=== PATIENT | male | born 1950 | race Caucasian/White ===

== ENCOUNTER 2020-02-18 10:12 | Outpatient (REF) | payer MEDICARE, SELFPAY ==
[2020-02-18 11:24] LABS: Estimated Average Glucose 151 mg/dL; Hemoglobin A1c % 6.9 %
[2020-02-18 11:59] LABS: Anion Gap 15 (12-20); Blood Urea Nitrogen 9 mg/dL (9-16); Calcium 8.8 mg/dL (8.4-10.2); Carbon Dioxide 24 mmol/L (22-29); Chloride 102 mmol/L (96-108); Cholesterol 139 mg/dL; Estimated Glomerular Filt Rate > 60; Glucose Fasting 112 mg/dL (60-99); HDL Cholesterol 38 mg/dL; LDL Cholesterol Calculated 67 mg/dl; Potassium 4.8 mmol/l (3.3-5.1); Sodium 136 mmol/L (135-145); Triglycerides 170 mg/dL
[2020-02-18 12:00] LABS: Prostate Specific Antigen Scr 2.52 ng/mL (<0.05-4.0)
[2020-02-18 12:14] LABS: Microalbum/Creatinine Ratio Ur 11.7 ug/mg cr
== END 2020-02-18 10:13 | disposition home or self-care (01) ==
LOC: HO.HMGCLDS 10:12
PROVIDERS: PCP Nurse Practitioner Family; Visit Provider Nurse Practitioner Gerontology
DX: E11.65 Type 2 diabetes mellitus with hyperglycemia (principal); Z12.5 Encounter for screening for malignant neoplasm of prostate
CPT/HCPCS: 80048; 80061; 82043; 83036; 84153

== ENCOUNTER → 2020-02-29 08:16 | Outpatient (BNVA) | payer MEDICARE, SELFPAY | PROVIDERS: PCP Nurse Practitioner Family; Visit Provider Nurse Practitioner Family | DX: G47.33 Obstructive sleep apnea (adult) (pediatric) (principal) | CPT/HCPCS: Q3014 ==

== ENCOUNTER → 2020-08-10 09:27 | Outpatient (BNVA) | payer MEDICARE, SELFPAY | PROVIDERS: PCP Nurse Practitioner Family; Visit Provider Nurse Practitioner Gerontology | DX: E11.9 Type 2 diabetes mellitus without complications (principal); I10 Essential (primary) hypertension; E78.5 Hyperlipidemia, unspecified; E78.1 Pure hyperglyceridemia; E66.09 Other obesity due to excess calories; Z79.4 Long term (current) use of insulin; Z68.34 Body mass index [BMI] 34.0-34.9, adult | CPT/HCPCS: 82947; 99212 ==

== ENCOUNTER 2021-01-20 07:47 | Outpatient (REF) | payer MEDICARE, SELFPAY ==
[2021-01-20 11:46] LABS: Estimated Average Glucose 123 mg/dL; Hemoglobin A1c % 5.9 %
[2021-01-20 11:54] LABS: Alanine Aminotransferase 19 U/L (0-40); Albumin Level 4.3 g/dL (3.5-5.0); Alkaline Phosphatase 105 U/L (39-117); Anion Gap 16 (12-20); Aspartate Amino Transferase 17 U/L (5-37); Bilirubin Total 0.6 mg/dL (0.0-1.0); Blood Urea Nitrogen 10 mg/dL (9-16); Calcium 9.8 mg/dL (8.4-10.2); Carbon Dioxide 23 mmol/L (22-29); Chloride 106 mmol/L (96-108); Cholesterol 171 mg/dL; Estimated Glomerular Filt Rate > 60; Glucose Fasting 141 mg/dL (60-99); HDL Cholesterol 42 mg/dL; LDL Cholesterol Calculated 87 mg/dl; Potassium 5.1 mmol/L (3.3-5.1); Sodium 140 mmol/L (135-145); Total Protein 7.4 g/dL (6.5-8.0); Triglycerides 212 mg/dL
[2021-01-20 12:08] LABS: Microalbum/Creatinine Ratio Ur 6.8 ug/mg cr
== END 2021-01-20 07:48 | disposition home or self-care (01) ==
LOC: HO.HMGCLDS 07:47
PROVIDERS: PCP Nurse Practitioner Family; Visit Provider Nurse Practitioner Gerontology
DX: E11.9 Type 2 diabetes mellitus without complications (principal); Z79.4 Long term (current) use of insulin
CPT/HCPCS: 36415; 80053; 80061; 82043; 83036

== ENCOUNTER → 2021-02-08 09:06 | Outpatient (BNVA) | payer MEDICARE, SELFPAY | PROVIDERS: PCP Nurse Practitioner Family; Visit Provider Nurse Practitioner Gerontology | DX: E11.9 Type 2 diabetes mellitus without complications (principal); E78.5 Hyperlipidemia, unspecified; E78.1 Pure hyperglyceridemia; E66.09 Other obesity due to excess calories; I10 Essential (primary) hypertension; Z79.4 Long term (current) use of insulin; Z68.32 Body mass index [BMI] 32.0-32.9, adult | CPT/HCPCS: 82947; 99212 ==

== ENCOUNTER 2022-09-11 10:33 | Emergency (ER) | payer MEDICARE, OTHER, SELFPAY ==
[2022-09-11 10:50] VITALS: BP 154/76; PULSE 76; RESP 20; TEMP 36.6; O2SAT 98; BMI 30.9
--- NOTE | 2022-09-11 11:42 | ED.LOWEXIN ---
HPI - Extremity Injury (Lower) General Chief Complaint: Extremity Injury, Lower Stated Complaint: ? Fx L Ankle S/P Fall Time Seen by Provider: 09/11/22 11:21 Source: patient Mode of arrival: ambulatory Limitations: no limitations History of Present Illness HPI Narrative: Patient is a 71 year old male with a past medical history of diabetes, hypertension, hyperlipidemia, and obesity presents with left ankle pain and swelling X2 days. Patient reports he was outside going down the stairs when he twisted his ankle. Patient was able to catch himself and did not fall to the ground and denies any head injury/loss of consciousness. Patient reports history of a sprained ankle on this same side years ago but came in because he is worried about a fracture as there is more swelling. Patient denies fever, chills, nausea, vomiting, numbness, tingling, chest pain, shortness of breath, numbness, or tingling. Related Data Home Medications Medication Instructions Recorded Confirmed amlodipine 5 mg tablet 5 mg PO DAILY 01/06/20 02/08/21 cholecalciferol (vitamin D3) 50 50 mcg PO DAILY 01/06/20 02/08/21 mcg (2,000 unit) capsule pravastatin 80 mg tablet 80 mg PO DAILY 01/06/20 02/08/21 [facility] 02/08/21 02/08/21 Ultra2 Meter) Previous Rx's Medication Instructions Recorded omega-3 fatty acids-fish oil 340 1 cap PO BID #60 caps 07/23/20 mg-1,000 mg capsule (Fish Oil) pen needle, diabetic 32 gauge x #100 ea 01/05/21 aspirin 81 mg tablet,delayed 81 mg PO DAILY #30 tabs 02/08/21 release lancets 33 gauge ([facility] Delica #100 ea 02/08/21 Plus Lancet) metformin 1,000 mg tablet 1,000 mg PO BID #180 tabs 04/17/21 losartan 25 mg tablet 25 mg PO DAILY 90 days #90 tabs 05/12/21 dapagliflozin propanediol 5 mg 5 mg PO DAILY 30 days #30 tabs 05/14/21 tablet (Farxiga) blood sugar diagnostic ([facility] #100 ea 08/10/21 Ultra Test strips) empagliflozin 10 mg tablet 10 mg PO DAILY #30 tabs 09/11/21 (Jardiance) dulaglutide 1.5 mg/0.5 mL 1.5 mg (0.5 mL) subcut QWEEK 28 10/04/21 subcutaneous pen injector days #2 mL (Trulicity) insulin glargine U-300 conc 300 20 unit (0.0667 mL) subcut BEDTIME 12/27/21 unit/mL (3 mL) subcutaneous pen 70 days #6 mL (Toujeo Max U-300 SoloStar) doxycycline hyclate 100 mg capsule 100 mg PO BID 5 days #10 caps 03/06/22 Allergies Allergy/AdvReac Type Severity Reaction Status Date / Time lisinopril Allergy Unknown cough Verified 09/11/22 10:53 Review of Systems Review of Systems: Constitutional : No Weight loss, No Fever, No Chills, No Fatigue, No Malaise ENT/Mouth : No sore throat, No Rhinorrhea Eyes: No Eye Pain, No Swelling, No Redness Cardiovascular : No Chest Pain, No SOB, No Dyspnea on Exertion, No Orthopnea, No Edema, No Palpitations Respiratory : No Cough, No Sputum, No Wheezing Gastrointestinal : No Nausea, No Vomiting, No Diarrhea, No Constipation, No abdominal Pain, No Hematochezia, No Melena Genitourinary : No Dysuria, No Urinary Frequency, No Hematuria, Musculoskeletal : + joint pain, No Myalgias, + Joint Swelling Skin : No Skin Lesions, No rash Neuro : No Weakness, No Numbness, No Dizziness, No Headache Psych : No Anxiety/Panic, No Depression All other systems reviewed and are negative Yes all other systems are reviewed and are negative [facility] Past Medical History Attestation statement: The following information was validated with the patient. Source: old records reviewed and nursing notes reviewed Medical History BMI 38.0-38.9,adult Controlled diabetes mellitus without complication, with long-term current use of insulin Diabetes mellitus type 2, controlled, without complications Dyslipidemia Erectile dysfunction Essential hypertension Fatty liver Hyperlipidemia LDL goal <100 Hypertriglyceridemia Insomnia penitentiary current use of insulin Microalbuminuria Obesity due to excess calories JACQUELYN (obstructive sleep apnea) Splenomegaly Vitamin D deficiency Surgical History History of tonsillectomy Family History Family History Father Stroke Rupture of blood vessel Diabetes Mother Breast cancer Maternal Grandmother Breast cancer Paternal Grandfather Bone cancer Maternal Aunt Breast cancer Maternal Uncle Bone cancer Paternal Aunt Breast cancer Brother Diabetes Brother Diabetes Brother No problems noted. Son No problems noted. Daughter No problems noted. Sister No problems noted. Sister No problems noted. Sister No problems noted. Sister No problems noted. Social History Social History Household Members: Other Household Members Other:: roomate Patient Tobacco Use Status: Former Tobacco user Tobacco use type: Cigarette Advance Directives: No Advance Directives Information Provided: Yes Physical Exam Vital Signs: Vital Signs: Last Vital Signs Temp 97.8 F 09/11/22 10:50 Pulse 76 09/11/22 10:50 Resp 20 09/11/22 10:50 BP 154/76 H 09/11/22 10:50 Pulse Ox 98 09/11/22 10:50 O2 Del Method Room Air 09/11/22 10:50 BMI result Body Mass Index 30.9 vss Appearance: Alert.? Oriented X3.? No acute distress.? Head: Normocephalic, atraumatic, no step-offs or deformities Eyes: Pupils equal, round and reactive to light CVS: Normal heart rate and rhythm.? Pulses normal.? Respiratory: No respiratory distress.? Breath sounds normal.? Abdomen: Soft and nontender.? Skin: Skin warm and dry.? Normal skin color.? Normal skin turgor.? Extremities:? No calf ttp. 5/5 strength to bilateral upper and lower extremities no footdrop. 2+ dorsalis pedis, anterior tibialis and posterior tibialis pulses equal bilateral. Full range of motion to bilateral ankles and toes, slight discomfort with range of motion of left ankle/foot. No overlying skin changes. Normal capillary refill less than 2 seconds. There is swelling noted to the lateral aspect of left ankle. Back: No midline tenderness, no C-spine tenderness, full range of motion, no CVA tenderness bilaterally Neuro: Oriented X 3.? No motor deficit.? No sensory deficit. CN 2-12 intact Course Reevaluation(s) Reevaluation #1: Patient's left foot and ankle x-ray with no evidence of acute osseous injury. Marked soft tissue swelling laterally and possible small ankle joint effusion. Offered patient pain meds, he states he is okay for now and does not need anything for pain. Will place a Mookie wrap on affected ankle. Will give him orthopedic follow-up. Educated patient on diagnosis and treatment plan, answered all question, patient verbalizes understanding. At this time patient will be discharged home, advised to return with new or worsening symptoms. Educated on worrisome signs and symptoms and when to return. At this time I feel comfortable discharge home. Time: 12:40 Medical Decision Making Medical Decision Making [facility] Narrative: 1143 71-year-old male presents with left ankle/foot pain status post rolling his ankle while walking down the stairs, no fall, head strike or other injuries. Physical exam significant for ? No calf ttp. 5/5 strength to bilateral upper and lower extremities no footdrop. 2+ dorsalis pedis, anterior tibialis and posterior tibialis pulses equal bilateral. Full range of motion to bilateral ankles and toes, slight discomfort with range of motion of left ankle/foot. No overlying skin changes. Normal capillary refill less than 2 seconds. There is swelling noted to the lateral aspect of left ankle. Likely sprain or strain with overlying effusion, unlikely fracture, dislocation, no signs of threatened limb neurovascular compromise. Plan imaging. Differential Diagnosis Differential Diagnoses: The differential diagnosis associated with the presentation includes Likely sprain or strain with overlying effusion, unlikely fracture, dislocation, no signs of threatened limb neurovascular compromise. Admission/Observation Consideration of admission/observation: Escalation of care including admission/observation considered Unlikely Independent Interpretation I performed an independent interpretation of an: Plain X-Ray Radiology Impression Discussion of test interpretation with radiology: I have reviewed the radiologist's reading. Core Measures AMI core measures followed: Yes Measure exclusions: not indicated Critical Care Time Critical Care Time Critical Care Time: No Discharge Plan Discharge Clinical Impression: Ankle sprain and strain Patient Disposition: Home, Self-Care Instructions: Ankle Sprain (ED), How to Use an Elastic Bandage (ED), R.I.C.E. Treatment (ED), Ice Pack Application (ED) Additional Instructions: Take your medications as prescribed. If you were prescribed antibiotics today, it is important that you take your medication to their entirety, do not skip any doses, do not finish them early. Follow-up with your primary care provider this week. Follow-up with the orthopedic team if needed Return to the emergency department with new or worsening symptoms. Such as fevers, chills, chest pain, shortness of breath, nausea, vomiting, dizziness, headache, vision changes, lethargy In case of emergency call 911 XR/XR ankle LT min 3V IMPRESSION: No evidence of an acute osseous injury. Marked soft tissue tissue swelling laterally and possible small ankle joint effusion. ? Prescriptions: No Action omega-3 fatty acids-fish oil [Fish Oil] 340-1,000 mg capsule 1 cap PO BID Qty: 60 6RF (DME) pen needle, diabetic 32 gauge x 5/32 needle See Rx Instructions .ROUTE .MEDSUPPLY Qty: 100 11RF Rx Instructions: As directed once daily. metformin 1,000 mg tablet 1,000 mg PO BID Qty: 180 0RF losartan 25 mg tablet 25 mg PO DAILY 90 Days Qty: 90 0RF Farxiga 5 mg tablet 5 mg PO DAILY 30 Days Qty: 30 0RF (DME) OneTouch Ultra Test Strip See Rx Instructions .Route Qty: 100 11RF Rx Instructions: As directed testing 2x daily. Jardiance 10 mg tablet 10 mg PO DAILY Qty: 30 2RF Trulicity 1.5 mg/0.5 mL pen injector 1.5 mg subcut QWEEK 28 Days Qty: 2 6RF Toujeo Max U-300 SoloStar 300 unit/mL (3 mL) insulin pen 20 unit subcut BEDTIME 70 Days Qty: 6 0RF amlodipine 5 mg tablet 5 mg PO DAILY pravastatin 80 mg tablet 80 mg PO DAILY cholecalciferol (vitamin D3) 50 mcg (2,000 unit) capsule 50 mcg PO DAILY doxycycline hyclate 100 mg capsule 100 mg PO BID 5 Days Qty: 10 0RF (DME) blood-glucose meter [OneTouch Ultra2 Meter] Misc See Rx Instructions .Route Rx Instructions: As directed (DME) lancets [OneTouch Delica Plus Lancet] 33 gauge [facility] peninsulac See Rx Instructions .Route Qty: 100 11RF Rx Instructions: As directed twice a day aspirin 81 mg tablet,delayed release (DR/EC) 81 mg PO DAILY Qty: 30 11RF Referrals: [facility] [place] [facility] [Provider Group] - 2 days Juan Cervantes, TELEVISION PRESENTER-BC [Primary Care Provider] - 2 days Stand Alone Forms: Work/School Release Interventions: ED Discharge Assessment Last Done: 09/11/22 12:40
== END 2022-09-11 12:41 | disposition home or self-care (01) ==
PROVIDERS: Emergency Provider Emergency Medicine; PCP Nurse Practitioner Family
DX: S93.402A Sprain of unspecified ligament of left ankle, initial encounter (principal); S96.912A Strain of unspecified muscle and tendon at ankle and foot level, left foot, initial encounter; X50.1XXA Overexertion from prolonged static or awkward postures, initial encounter; Y93.89 Activity, other specified; Y92.009 Unspecified place in unspecified non-institutional (private) residence as the place of occurrence of the external cause; Y99.9 Unspecified external cause status
CPT/HCPCS: 73610; 73630; 99282; 99283

== ENCOUNTER 2023-08-07 11:16 | Outpatient (AMB) | payer MEDICARE, MEDICAID, SELFPAY ==
[2023-08-07 11:23] VITALS: BP 136/78; PULSE 84; O2SAT 96; BMI 31.5
--- NOTE | 2023-08-07 11:23 | A.OFFPC_ITS ---
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 Tobacco use date assessed: 08/07/23 Fall risk assessment: No Falls in past year Last assessed Fall Risk: 08/07/23 Dental Screening Dental Screen Date: 08/07/23 Did you have a dental visit in the last 12 months?: Yes Did you have a dental problem in the last 6 months where you did not have access to dental care?: No Was dental information given to patient?: Patient has dentist HPI HPI Comments History of Present Illness Details Patient is a 72-year-old male in for preoperative clearance for bilateral cataract surgery. Patient has a past medical history significant for diabetes type 2, hypertension, hyperlipidemia, and obstructive sleep apnea. Patient reports that he has not been able to take his medications for the past 6 months due to insurance issues. Denies symptoms of polyuria polydipsia. Will restart patient on medications today. Will prescribe new glucose monitor. Will draw full panel fasting labs. [facility] Medical History Microalbuminuria Splenomegaly Controlled diabetes mellitus without complication, with long-term current use of insulin retirement current use of insulin Essential hypertension Hyperlipidemia LDL goal <100 Hypertriglyceridemia Obesity due to excess calories BMI 38.0-38.9,adult Dyslipidemia Vitamin D deficiency Insomnia Erectile dysfunction JACQUELYN (obstructive sleep apnea) Fatty liver Diabetes mellitus type 2, controlled, without complications Surgical History History of tonsillectomy Family History Father Stroke Rupture of blood vessel Diabetes Mother Breast cancer Maternal Grandmother Breast cancer Paternal Grandfather Bone cancer Maternal Aunt Breast cancer Maternal Uncle Bone cancer Paternal Aunt Breast cancer Brother Diabetes Brother Diabetes Brother No problems noted. Son No problems noted. Daughter No problems noted. Sister No problems noted. Sister No problems noted. Sister No problems noted. Sister No problems noted. Social History Household Members: Other Household Members Other:: roomate Housing: House Patient Tobacco Use Status: Former Tobacco user Tobacco use type: Cigarette Cognitive needs: No Hearing needs: No Review of Systems Const All systems reviewed & are unremarkable except as noted in HPI and below Physical exam (Primary Care) Vital Signs: Last Vital Signs Pulse 84 08/07/23 11:23 BP 136/78 08/07/23 11:23 Pulse Ox 96 08/07/23 11:23 Care Plan Goal for BP management: Patient started on losartan 25 mg for kidney protection Next steps: Take blood pressure at least once per day record and bring to appointment in 1 month BMI result Body Mass Index 31.5 Tobacco/Smoking Status: Tobacco use Status Tobacco use date assessed 08/07/23 08/07/23 11:27 Patient Tobacco Use Status Former Tobacco user 08/07/23 11:27 Tobacco use type Cigarette 08/07/23 11:27 Const Other: Appearance: Alert.? Oriented X3.? No acute distress.? Head: Normocephalic, Eyes: Pupils equal, round and reactive to light.? Neck: Normal inspection.? Neck supple.? CVS: Normal heart rate and rhythm.? Pulses normal.? Respiratory: No respiratory distress.? Breath sounds normal.? Neuro: Oriented X 3.? No motor deficit.? No sensory deficit. CN 2-12 intact Assessment and Plan Assessment & Plan (1) Pre-op exam: Comment: Will draw full panel fasting labs. In office A1c 10.6. Patient restarted on diabetic medications. Patient is at high risk for procedure. Code(s): Z01.818 - Encounter for other preprocedural examination (2) Essential hypertension: Comment: We started losartan 25 mg p.o. daily. Patient will record blood pressure measurements at least once per day. Code(s): I10 - Essential (primary) hypertension (3) Hypertriglyceridemia: Comment: Patient restarted on atorvastatin 20 mg p.o. daily. Code(s): E78.1 - Pure hyperglyceridemia (4) Uncontrolled type 2 diabetes mellitus with hyperglycemia: Comment: A1c in office 10.6 patient restarted on metformin and Jardiance. Will likely need to restart on Trulicity as well. Patient has follow-up appointment in 1 month. Patient has been instructed to take blood sugar measurements at least once per day and record them in a log. Code(s): E11.65 - Type 2 diabetes mellitus with hyperglycemia Plan: Draw labs Plan Patient has follow-up physical exam 1 month. Orders: Orders Lipid Panel Today Z13.220 - Encounter for screening for lipoid disorders Vitamin B6 Today Z13.21 - Encounter for screening for nutritional disorder TSH reflex Free T4 Today Z13.29 - Encounter for screening for other suspected endocrine disorder PSA,Total (Free>4and<10) Today Z13.89 - Encounter for screening for other disorder AMB Hemoglobin A1c Today Z13.9 - Encounter for screening, unspecified Comprehensive Met. Panel Today Z91.89 - Other specified personal risk factors, not elsewhere classified Complete Blood Count Auto Diff Today Z13.0 - Encounter for screening for diseases of the blood and blood-forming organs and certain disorders involving the immune mechanism Vitamin D 25-OH (D2 and D3) Today Z13.21 - Encounter for screening for nutritional disorder Vitamin B12 Today Z13.21 - Encounter for screening for nutritional disorder UA CC w/rflx Micro + Cult Today Z13.89 - Encounter for screening for other disorder Medications: New metformin 1,000 mg PO BIDWMEAL 60 tabs 0RF empagliflozin (Jardiance) 10 mg PO DAILY 30 tabs 0RF losartan 25 mg PO DAILY 30 tabs 0RF atorvastatin 20 mg PO DAILY 30 tabs 0RF lancets (FreeStyle Lancets) As directed 100 ea 0RF blood-glucose meter (FreeStyle Lite Meter kit) Take blood sugar measurements x1 per day. 1 ea 0RF blood sugar diagnostic (FreeStyle Lite Strips) Take blood sugar x1 per day. 100 ea 0RF Coding Level of Care Code Est Pt Level 3 (61933) Diagnoses Pre-op exam Z01.818 Essential hypertension I10 Hypertriglyceridemia E78.1 Uncontrolled type 2 diabetes mellitus with hyperglycemia E11.65 Time Spent (min) 27
== END 2023-08-07 14:55 | disposition home or self-care (01) ==
PROVIDERS: PCP Nurse Practitioner Family; Visit Provider Nurse Practitioner Primary Care
DX: E11.65 Type 2 diabetes mellitus with hyperglycemia (principal)
CPT/HCPCS: 83036; 99213

== ENCOUNTER 2023-08-19 08:39 | Outpatient (REF) | payer OTHER, SELFPAY ==
[2023-08-19 10:29] LABS: Appearance Urine Clear; Color Urine Yellow; Glucose Urine UA >=1000 mg/dL (Negative); Leukocyte Esterase Urine Negative (Negative); Nitrite Urine Negative (Negative); Specific Gravity - Urine >= 1.030 (1.005-1.025); UMIC TRIGGER UACC YES; Urine Blood Negative (Negative); Urine Ketones Trace mg/dL (Negative); Urine Protein Negative (Neg-Trace)
[2023-08-19 10:31] LABS: MANUAL DIFF FLAG NO
[2023-08-19 10:42] LABS: Bacteria Urine None Seen (None Seen); Hyaline Casts Urine 0-2 /LPF (0-2); RBC Urine 0-2 /HPF (0-2); Squamous Epithelial Cell Urine 0-2 /HPF (0-2); WBC Urine 0-5 /HPF (0-5)
[2023-08-19 10:47] LABS: Basophils Absolute Auto 0.1 X10*3/uL (0.0-0.2); Basophils Percent Auto 0.8 % (0-2); Eosinophils Absolute Auto 0.1 X10*3/uL (0.0-0.4); Eosinophils Percent Auto 1.2 % (0-4); Hematocrit 46.7 % (42.0-52.0); Hemoglobin 16.6 g/dl (14.0-18.0); Imm Gran Abs Auto 0.02 X10*3/uL (0.00-0.03); Imm Gran Pct Auto 0.2 % (0.0-0.4); Lymphocytes Absolute Auto 3.1 X10*3/uL (1.2-4.9); Lymphocytes Percent Auto 38.1 % (20-40); Mean Corpuscular HGB Conc 35.5 g/dl (31.0-36.0); Mean Corpuscular Hemoglobin 30.3 pg (27.0-33.0); Mean Corpuscular Volume 85.4 fL (80.0-98.0); Mean Platelet Volume 9.9 fL (9.4-12.4); Monocytes Absolute Auto 0.5 X10*3/uL (0.1-1.2); Monocytes Percent Auto 5.6 % (2-11); Neutrophils Absolute Auto 4.5 x10*3/uL (2.0-8.3); Neutrophils Percent Auto 54.1 % (45-73); Platelet Count 293 X10*3/uL (160-400); Red Blood Count 5.47 X10*6/uL (4.60-5.80); Red Cell Distribution Width 13.5 % (11.0-16.0); White Blood Count 8.3 X10*3/uL (4.8-10.8)
[2023-08-19 11:17] LABS: Alanine Aminotransferase 23 U/L (0-40); Alkaline Phosphatase 105 U/L (39-117); Anion Gap 12 (12-20); Aspartate Amino Transferase 24 U/L (5-37); Bilirubin Total 0.5 mg/dL (0.0-1.0); Calcium 9.3 mg/dL (8.4-10.2); Carbon Dioxide 25 mmol/L (22-29); Chloride 107 mmol/L (96-108); Cholesterol 107 mg/dL (<200); Estimated Glomerular Filt Rate > 60; Glucose Random 180 mg/dL (60-115); HDL Cholesterol 38 mg/dL (>40); LDL Cholesterol Calculated 34 mg/dL (<100); Sodium 139 mmol/L (135-145); Total Protein 7.1 g/dL (6.5-8.0); Triglycerides 177 mg/dL (<150)
[2023-08-19 11:20] LABS: PSA,Total (Free>4and<10) 2.93 ng/mL (0.00-4.00)
[2023-08-19 11:25] LABS: Vitamin B12 285 pg/mL (200-900)
[2023-08-19 11:50] LABS: Blood Urea Nitrogen 11 mg/dL (9-16)
[2023-08-19 12:21] LABS: TSH reflex Free T4 1.87 uIU/mL (0.32-4.0)
[2023-08-23 15:08] LABS: Vitamin D 25-OH, D2 <4 ng/mL; Vitamin D 25-OH, D3 19 ng/mL; Vitamin D 25-OH, Total 19 ng/mL (30-100)
[2023-08-29 11:54] LABS: Vitamin B6 4.8 ng/mL (2.1-21.7)
== END 2023-08-19 08:40 | disposition home or self-care (01) ==
LOC: HO.HMGCLDS 08:39
PROVIDERS: PCP Nurse Practitioner Family; Visit Provider Nurse Practitioner Primary Care
DX: Z13.220 Encounter for screening for lipoid disorders (principal); Z13.89 Encounter for screening for other disorder; Z13.0 Encounter for screening for diseases of the blood and blood-forming organs and certain disorders involving the immune mechanism; Z13.21 Encounter for screening for nutritional disorder; Z13.29 Encounter for screening for other suspected endocrine disorder; Z91.89 Other specified personal risk factors, not elsewhere classified; Z12.5 Encounter for screening for malignant neoplasm of prostate
CPT/HCPCS: 36415; 80053; 80061; 81001; 82306; 82607; 84153; 84207; 84443; 85025

== ENCOUNTER 2023-09-19 15:24 | Outpatient (AMB) | payer OTHER, MEDICAID, SELFPAY ==
--- NOTE | 2023-09-19 15:25 | MHC.PC.OV ---
Vital Signs 09/19/23 15:31 Height 5 ft 4 in Weight 183 lb BMI 31.4 BP 124/66 Blood Pressure Location Lt brachial Position Sitting Pulse 67 Pulse Source Pulse Oximeter Pulse Oximetry (%) 98 Oxygen Delivery Method Room Air Intake Visit Reasons: Diabetes Intake Note: Pt is here for diabetes followup. A1c 10.6% 08/07/23 Allergies lisinopril Allergy (Unknown, Verified 09/19/23 15:38) cough Medication List - Last Reconciled 09/19/23 by RC Jones atorvastatin 20 mg PO DAILY blood sugar diagnostic (Accu-Chek Guide test strips) Test blood sugar once a day blood-glucose meter (Accu-Chek Guide Glucose Meter) As directed cholecalciferol (vitamin D3) 50 mcg PO DAILY empagliflozin (Jardiance) 10 mg PO DAILY lancets (Accu-Chek Softclix Lancets) test blood sugar once a day losartan 25 mg PO DAILY metformin 1,000 mg PO BID pen needle, diabetic As directed once daily. Tobacco use date assessed: 09/19/23 Fall risk assessment: No Falls in past year Dental Screening Dental Screen Date: 08/07/23 Did you have a dental visit in the last 12 months?: No Did you have a dental problem in the last 6 months where you did not have access to dental care?: No Was dental information given to patient?: Patient declined HPI HPI Comments History of Present Illness Details Patient is a 72-year-old male in today to follow-up on labs. Patient had labs drawn which demonstrated low vitamin D3, and hypertriglyceridemia. Patient was also off of his diabetic medications for several months, and was restarted on them at the previous visit. Currently utilizing a 1000 mg metformin, b.i.d., and Jardiance 10 mg p.o. daily. He has been taking his blood sugar measurements at home and states that his highest value at home has been in the 130s, usually blood sugars are in the low 100s. He has also started exercising and improving his diet. Will redraw labs in 1 month. Will also draw microalbumin. [facility] Medical History (Updated 09/19/23 @ 15:47 by RC Jones) Microalbuminuria Splenomegaly Controlled diabetes mellitus without complication, with long-term current use of insulin nursing home current use of insulin Essential hypertension Hyperlipidemia LDL goal <100 Hypertriglyceridemia Obesity due to excess calories BMI 38.0-38.9,adult Dyslipidemia Vitamin D deficiency Insomnia Erectile dysfunction JACQUELYN (obstructive sleep apnea) Fatty liver Diabetes mellitus type 2, controlled, without complications Surgical History History of tonsillectomy Family History Father Stroke Rupture of blood vessel Diabetes Mother Breast cancer Maternal Grandmother Breast cancer Paternal Grandfather Bone cancer Maternal Aunt Breast cancer Maternal Uncle Bone cancer Paternal Aunt Breast cancer Brother Diabetes Brother Diabetes Brother No problems noted. Son No problems noted. Daughter No problems noted. Sister No problems noted. Sister No problems noted. Sister No problems noted. Sister No problems noted. Social History Household Members: Other Household Members Other:: roomate Housing: House Patient Tobacco Use Status: Former Tobacco user Tobacco use type: Cigarette e-Cigarette/Vaping Use: Never Used Cognitive needs: No Hearing needs: No Vision needs: No Questionnaire PHQ-9 Over the last 2 weeks, how often have you been bothered by any of the following problems? 1. Little interest or pleasure in doing things: not at all 2. Feeling down, depressed, or hopeless: not at all 3. Trouble falling or staying asleep, or sleeping too much: not at all 4. Feeling tired or having little energy: not at all 5. Poor appetite or overeating: not at all 6. Feeling bad about yourself - or that you are a failure or have let yourself or your family down: not at all 7. Trouble concentrating on things, such as reading the newspaper or watching television: not at all 8. Moving or speaking so slowly that other people could have noticed. Or the opposite - being so fidgety or restless that you have been moving around a lot more than usual: not at all 9. Thoughts that you would be better off or of hurting yourself in some way: not at all Total score: 0 Depression Screening Interpretation: Negative Depression Screening Done: Yes 77039 - PHQ-9 Billing: Yes Source: Developed by Drs. Mehul Mosquera, Jamar Barry and colleagues, with an educational amara from [employer]. Thrive Questionnaire Date Thrive assessed: 09/19/23 I am a: Patient What is your living situation today?: I have a steady place to live Within the past 12 months, did the food you bought not last and you didn't have the money to get more?: Never true Within the past 12 months, did you worry whether your food would run out before you got money to buy more?: Never true Do you have trouble paying for medicines?: No Do you have trouble getting transportation to medical appointments?: No Do you have trouble paying your heating and electricity bill?: No Do you have trouble taking care of your child, family member or friend?: No Do you have trouble with day-to-day activities such as bathing, preparing meals, shopping, managing finances, etc.?: No Are you currently unemployed and looking for a job?: No Are you interested in more education?: No Please select the resources that you would like help with: None Currently or been in a relationship where the following occur: No concerns reported THRIVE Score: 0 AUDIT C Alcohol Use Questionnaire (AUDIT-C) 1. How often do you have a drink containing alcohol?: Never Total Score: 0 MARYCARMEN-7 AMB Questionnaire MARYCARMEN-7 Date MARYCARMEN - 7 assessed: 09/19/23 Feeling nervous, anxious, or on edge: 0 = Not at all Not being able to stop or control worryin = Not at all Worrying too much about different things: 0 = Not at all Trouble relaxin = Not at all Being so restless that it is hard to sit still: 0 = Not at all Becoming easily annoyed or irritable: 0 = Not at all Feeling afraid as if something awful might happen: 0 = Not at all Total MARYCARMEN-7 score (0-4 normal; 5-9 mild; 10-14 moderate; 15-21 severe): 0 Source: Developed by Drs. Mehul Mosquera, Jamar Barry and colleagues, with an educational amara from [employer]. MARYCARMEN-7 Assessment Billing MARYCARMEN-7 Assessment Tool: MARYCARMEN-7 Assessment 76697 Review of Systems Const All systems reviewed & are unremarkable except as noted in HPI and below Physical exam (Primary Care) Vital Signs: Last Vital Signs Pulse 67 09/19/23 15:31 BP 124/66 09/19/23 15:31 Pulse Ox 98 09/19/23 15:31 Oxygen Delivery Method Room Air 09/19/23 15:31 BMI result Body Mass Index 31.4 Tobacco/Smoking Status: Tobacco use Status Tobacco use date assessed 09/19/23 09/19/23 15:27 Patient Tobacco Use Status Former Tobacco user 09/19/23 15:25 Tobacco use type Cigarette 09/19/23 15:25 e-Cigarette/Vaping Use Never Used 09/19/23 15:27 PHQ-9: PHQ-9 Score PHQ-9: Total score 0 09/19/23 15:35 Depression Screening Interpretation: Negative Thrive Assessment: Date of Thrive Assessment Date Thrive assessed 09/19/23 09/19/23 15:35 Currently or been in a relationship where the following occur: No concerns reported Const Other: Appearance: Alert.? Oriented X3.? No acute distress.? Head: Normocephalic, atraumatic, no step-offs or deformities Neck: Normal inspection.? Neck supple.? CVS: Normal heart rate and rhythm.? Pulses normal.? Respiratory: No respiratory distress.? Breath sounds normal.? Neuro: Oriented X 3.? No motor deficit.? No sensory deficit. CN 2-12 intact Assessment and Plan Assessment & Plan (1) Vitamin D deficiency: Comment: Patient will have vitamin-D redrawn in 1 month. Currently utilizing 2000 units vitamin D3 per day. Code(s): E55.9 - Vitamin D deficiency, unspecified (2) Hypertriglyceridemia: Comment: Patient restarted on atorvastatin 20 mg p.o. daily. Will redraw 1 month. Code(s): E78.1 - Pure hyperglyceridemia Plan: draw labs Orders: Orders Microalbumin, Random (w Creat) Today Z13.89 - Encounter for screening for other disorder Vitamin D 25-OH (D2 and D3) Today Z13.21 - Encounter for screening for nutritional disorder Lipid Panel Today Z13.220 - Encounter for screening for lipoid disorders Coding Level of Care Code Est Pt Level 3 (81801) Diagnoses Vitamin D deficiency E55.9 Hypertriglyceridemia E78.1 Additional Codes MARYCARMEN-7 Assessment Billing - MARYCARMEN-7 Assessment Tool: MARYCARMEN-7 Assessment 52516 ([id number]) Time Spent (min) 23
[2023-09-19 15:31] VITALS: BP 124/66; PULSE 67; O2SAT 98; BMI 31.4
== END 2023-09-19 15:45 | disposition home or self-care (01) ==
PROVIDERS: PCP Nurse Practitioner Family; Visit Provider Nurse Practitioner Primary Care
DX: E55.9 Vitamin D deficiency, unspecified (principal); E78.1 Pure hyperglyceridemia
CPT/HCPCS: 99213

== ENCOUNTER 2023-12-25 12:15 | Outpatient (AMB) | payer OTHER, MEDICARE, SELFPAY ==
--- NOTE | 2023-12-25 12:22 | A.OFFPC_ITS ---
Vital Signs 12/25/23 12:23 Height 5 ft 4 in Weight 183 lb BMI 31.4 BP 118/66 Blood Pressure Location Rt brachial Position Sitting Pulse 70 Pulse Source Pulse Oximeter Pulse Oximetry (%) 98 Oxygen Delivery Method Room Air Intake Visit Reasons: Transfer back from [facility]/ Intake Note: pt is [facility] to [facility] care, patient is dm Senior Environmental Technician Required: No Allergies lisinopril Allergy (Unknown, Verified 12/25/23 12:25) cough Medication List - Last Reconciled 12/25/23 by AMY Valentine atorvastatin 20 mg PO DAILY blood sugar diagnostic (Accu-Chek Guide test strips) Test blood sugar once a day blood-glucose meter (Accu-Chek Guide Glucose Meter) As directed cholecalciferol (vitamin D3) 50 mcg PO DAILY empagliflozin (Jardiance) 10 mg PO DAILY lancets (Accu-Chek Softclix Lancets) test blood sugar once a day losartan 25 mg PO DAILY metformin 1,000 mg PO BID pen needle, diabetic As directed once daily. Tobacco use date assessed: 09/19/23 Fall risk assessment: No Falls in past year Last assessed Fall Risk: 12/25/23 Dental Screening Dental Screen Date: 08/07/23 HPI Transfer back from [facility]/ HPI Details Pt is here to transfer care from another provider. Pt is a diabetic, on an ARB and a statin. A1C in office today is 6.7. Due for microalbumin, will order. Denies polyuria, polydipsia, does report intermittent neuropathy. Pt denies any signs and symptoms of hypoglycemia and does know how to correct it. Eye exam is up to date. Pt c/o left leg numbness. He reports that his leg gives out and he feels unsteady. Pt does report lower back pain. Will order XR and EMG/nerve conduction testing. Denies any signs of cauda equina. Pt also reports left hip pain. He reports that standing up after sitting for long periods makes the pain worse. Denies any popping or clicking. Will order XR. Pt reports that his joints hurt worse when it rains. ? arthritis. 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 Essential hypertension Hyperlipidemia LDL goal <100 Hypertriglyceridemia Obesity due to excess calories BMI 38.0-38.9,adult Dyslipidemia Vitamin D deficiency Insomnia Erectile dysfunction JACQUELYN (obstructive sleep apnea) Fatty liver Diabetes mellitus type 2, controlled, without complications Surgical History S/P cataract extraction History of tonsillectomy Family History (Reviewed 12/25/23 @ 13:38 by [facility] Father Stroke Rupture of blood vessel Diabetes Mother Breast cancer Maternal Grandmother Breast cancer Paternal Grandfather Bone cancer Maternal Aunt Breast cancer Maternal Uncle Bone cancer Paternal Aunt Breast cancer Brother Diabetes Brother Diabetes Brother No problems noted. Son No problems noted. Daughter No problems noted. Sister No problems noted. Sister No problems noted. Sister No problems noted. Sister No problems noted. Social History (Reviewed 12/25/23 @ 13:38 by [facility]UN[facility] Household Members: Other Household Members Other:: roomate Housing: House Patient Tobacco Use Status: Former Tobacco user Tobacco use type: Cigarette e-Cigarette/Vaping Use: Never Used Cognitive needs: No Hearing needs: No Vision needs: No Questionnaire PHQ-9 Over the last 2 weeks, how often have you been bothered by any of the following problems? 1. Little interest or pleasure in doing things: not at all 2. Feeling down, depressed, or hopeless: not at all 3. Trouble falling or staying asleep, or sleeping too much: not at all 4. Feeling tired or having little energy: several days 5. Poor appetite or overeating: not at all 6. Feeling bad about yourself - or that you are a failure or have let yourself or your family down: not at all 7. Trouble concentrating on things, such as reading the newspaper or watching television: not at all 8. Moving or speaking so slowly that other people could have noticed. Or the opposite - being so fidgety or restless that you have been moving around a lot more than usual: more than half the days 9. Thoughts that you would be better off or of hurting yourself in some way: not at all Total score: 3 Depression Screening Interpretation: Negative Depression Screening Done: Yes 29128 - PHQ-9 Billing: Yes Source: Developed by Drs. Mehul Mosquera, Shari Mcqueen, Jamar Bacon and colleagues, with an educational amara from [employer]. Thrive Questionnaire Date Thrive assessed: 12/25/23 I am a: Patient What is your living situation today?: I have a steady place to live Within the past 12 months, did the food you bought not last and you didn't have the money to get more?: Never true Within the past 12 months, did you worry whether your food would run out before you got money to buy more?: Never true Do you have trouble paying for medicines?: No Do you have trouble getting transportation to medical appointments?: No Do you have trouble paying your heating and electricity bill?: No Do you have trouble taking care of your child, family member or friend?: No Do you have trouble with day-to-day activities such as bathing, preparing meals, shopping, managing finances, etc.?: No Are you currently unemployed and looking for a job?: No Are you interested in more education?: No Please select the resources that you would like help with: None Currently or been in a relationship where the following occur: No concerns reported THRIVE Score: 0 AUDIT C Alcohol Use Questionnaire (AUDIT-C) 1. How often do you have a drink containing alcohol?: Monthly or less 2. How many drinks containing alcohol do you have on a typical day when you are drinking?: 1 or 2 3. How often do you have six or more drinks on one occasion?: Never Total Score: 1 Score Reviewed/Action Taken: Yes MARYCARMEN-7 AMB Questionnaire MARYCARMEN-7 Date MARYCARMEN - 7 assessed: 12/25/23 Feeling nervous, anxious, or on edge: 0 = Not at all Not being able to stop or control worryin = Not at all Worrying too much about different things: 0 = Not at all Trouble relaxin = Not at all Being so restless that it is hard to sit still: 0 = Not at all Becoming easily annoyed or irritable: 0 = Not at all Feeling afraid as if something awful might happen: 0 = Not at all Total MARYCARMEN-7 score (0-4 normal; 5-9 mild; 10-14 moderate; 15-21 severe): 0 Source: Developed by Drs. Mehul Mosquera, Shari Mcqueen, Jamar Bacon and colleagues, with an educational amara from [employer] MARYCARMEN-7 Assessment Billing MARYCARMEN-7 Assessment Tool: MARYCARMEN-7 Assessment 60351 Review of Systems Const Reports as per HPI Physical exam (Primary Care) Vital Signs: Last Vital Signs Pulse 70 12/25/23 12:23 BP 118/66 12/25/23 12:23 Pulse Ox 98 12/25/23 12:23 Oxygen Delivery Method Room Air 12/25/23 12:23 BMI result Body Mass Index 31.4 Tobacco/Smoking Status: Tobacco use Status Tobacco use date assessed 09/19/23 12/25/23 12:25 Patient Tobacco Use Status Former Tobacco user 12/25/23 12:25 Tobacco use type Cigarette 12/25/23 12:25 e-Cigarette/Vaping Use Never Used 12/25/23 12:25 PHQ-9: PHQ-9 Score PHQ-9: Total score 3 12/25/23 12:25 Depression Screening Interpretation: Negative Thrive Assessment: Date of Thrive Assessment Date Thrive assessed 12/25/23 12/25/23 12:25 Currently or been in a relationship where the following occur: No concerns reported Const General: cooperative Nutritional Appearance: obese Orientation/consciousness: patient oriented x3 Resp Effort & Inspection: normal respiratory effort Auscultation: clear to auscultation bilaterally Cardio Rate: regular rate Rhythm: regular rhythm Heart sounds: S1 normal heart sound present and S2 normal heart sound present Back/Spine/Pelvis Other: lower back discomfort noted with LLE raises, no pain with palpation of lower back Neuro General: patient oriented x3 Extrem Other: bilat feet: + sensation with use of monofilament, + dorsalis pedis pulses, left hip: - fabers, no popping or clicking with ROM Psych Appearance: grossly normal Mental Status: mental status grossly normal Speech and movement: Normal speech and movement present Affect: normal affect Attitude: cooperative Thought process: Normal thought process present Thought content: Normal thought content present Insight: Good insight present (Psych) Judgement: Good judgement present (Psych) Results AMB Hemoglobin A1c AMB Hemoglobin A1c 6.7 % Last Edit by Nilay Muir CMA on 12/25/23 13: 07 Coding Level of Care Code New Pt Level 3 (21666) Diagnoses Uncontrolled type 2 diabetes mellitus with hyperglycemia E11.65 Left leg numbness R20.0 Lower back pain M54.50 Left hip pain M25.552 Additional Codes MARYCARMEN-7 Assessment Billing - MARYCARMEN-7 Assessment Tool: MARYCARMEN-7 Assessment 68064 ([id number]) Assessment & Plan Assessment & Plan (1) Uncontrolled type 2 diabetes mellitus with hyperglycemia: Code(s): E11.65 - Type 2 diabetes mellitus with hyperglycemia Category: Medical Plan: Well controlled, continue current meds (2) Left leg numbness: Code(s): R20.0 - Anesthesia of skin Category: Medical Plan: EMG/nerve conduction testing ordered, lower back XR ordered (3) Lower back pain: Code(s): M54.50 - Low back pain, unspecified Category: Medical Plan: XR ordered (4) Left hip pain: Code(s): M25.552 - Pain in left hip Category: Medical Plan: XR ordered Plan The patient agreed to the use of a behavioral medical director for this encounter. Scribed for RC Gong-YOU by Chiquis Go behavioral medical director, on 12/25/2023 at 12:55 EST. Orders: Orders UA CC w/rflx Micro + Cult Today E11.65 - Type 2 diabetes mellitus with hyperglycemia Lipid Panel Today E11.65 - Type 2 diabetes mellitus with hyperglycemia NE nerve conduction velocity Today R20.0 - Anesthesia of skin NE electromyogram (EMG) Today R20.0 - Anesthesia of skin XR hip LT min 2V Today M25.552 - Pain in left hip Complete Blood Count Auto Diff Today E11.65 - Type 2 diabetes mellitus with hyperglycemia Comprehensive [place]. Panel Fast Today E11.65 - Type 2 diabetes mellitus with hyperglycemia TSH reflex Free T4 Today E11.65 - Type 2 diabetes mellitus with hyperglycemia Microalbumin, Random (w Creat) Today E11.65 - Type 2 diabetes mellitus with hyperglycemia XR lumbar spine 2-3V Today M54.50 - Low back pain, unspecified, R20.0 - Anesthesia of skin AMB Hemoglobin A1c Today Z13.9 - Encounter for screening, unspecified
[2023-12-25 12:23] VITALS: BP 118/66; PULSE 70; O2SAT 98; BMI 31.4
== END 2023-12-25 13:11 | disposition home or self-care (01) ==
PROVIDERS: PCP Nurse Practitioner Family; Visit Provider Nurse Practitioner Family
DX: E11.65 Type 2 diabetes mellitus with hyperglycemia (principal); R20.0 Anesthesia of skin; M54.50 Low back pain, unspecified; M25.552 Pain in left hip; Z13.9 Encounter for screening, unspecified

== ENCOUNTER → 2023-12-25 12:15 | Outpatient (BNVA) | payer OTHER, SELFPAY | PROVIDERS: PCP Nurse Practitioner Family; Visit Provider Nurse Practitioner Family | DX: E11.65 Type 2 diabetes mellitus with hyperglycemia (principal); R20.0 Anesthesia of skin; M54.50 Low back pain, unspecified; M25.552 Pain in left hip | CPT/HCPCS: 83036; 96127 ==

== ENCOUNTER 2023-12-25 13:11 | Outpatient (REF) | payer MEDICARE, SELFPAY ==
--- NOTE | ~2023-12-25 | XR_ITS ---
EXAMINATION: XR HIP LEFT 2 VIEWS CLINICAL INFORMATION: Pain in left hip M25.552. COMPARISON: None available TECHNIQUE: Two views of the left hip. FINDINGS: Pain . Visualized portions of the proximal left femur demonstrate no fracture. Femoral head is well-seated within the acetabulum. There is only mild narrowing of the left femoral acetabular joint space. Small pelvic calcifications are likely vascular in nature. XR/XR hip LT min 2V IMPRESSION: Mild degenerative changes of the left hip. Electronically signed by: Gerry Sheehan MD 02/18/2024 09:28 AM MINOO HOFF
--- NOTE | ~2023-12-25 | XR_ITS ---
EXAMINATION: XR LUMBOSACRAL SPINE 3 VIEWS CLINICAL INFORMATION: Anesthesia of skin R20.0. COMPARISON: XR Lumbar spine 01/04/2010 (report only). TECHNIQUE: Three views of the lumbosacral spine. FINDINGS: 5 nonrib-bearing lumbar vertebral bodies are visualized. Alignment is within normal limits. Lumbar vertebral body heights are maintained. There is mild to moderate narrowing of the L5/S1 disc space height. Other disc space heights are maintained. There are mild degenerative changes of the posterior elements of the lower lumbar spine. Vascular calcifications demonstrated. XR/XR lumbar spine 2-3V IMPRESSION: Mild degenerative changes of the lower lumbar spine. Electronically signed by: Gerry Sheehan MD 02/18/2024 09:29 AM MINOO
== END 2023-12-25 13:12 | disposition home or self-care (01) ==
LOC: HO.HMGCX 13:11
PROVIDERS: PCP Nurse Practitioner Family; Visit Provider Nurse Practitioner Family
DX: M25.552 Pain in left hip (principal); M54.50 Low back pain, unspecified; R20.0 Anesthesia of skin
CPT/HCPCS: 72100; 73502

== ENCOUNTER 2024-01-07 06:04 | Outpatient (REF) | payer MEDICARE, SELFPAY ==
[2024-01-07 10:04] LABS: MANUAL DIFF FLAG NO
[2024-01-07 10:08] LABS: Basophils Absolute Auto 0.1 X10*3/uL (0.0-0.2); Eosinophils Absolute Auto 0.1 X10*3/uL (0.0-0.4); Eosinophils Percent Auto 1.3 % (0-4); Hematocrit 47.7 % (42.0-52.0); Hemoglobin 16.4 g/dl (14.0-18.0); Imm Gran Abs Auto 0.03 X10*3/uL (0.00-0.03); Imm Gran Pct Auto 0.4 % (0.0-0.4); Lymphocytes Absolute Auto 2.8 X10*3/uL (1.2-4.9); Lymphocytes Percent Auto 39.1 % (20-40); Mean Corpuscular HGB Conc 34.4 g/dl (31.0-36.0); Mean Corpuscular Hemoglobin 30.2 pg (27.0-33.0); Mean Corpuscular Volume 87.8 fL (80.0-98.0); Mean Platelet Volume 10.1 fL (9.4-12.4); Monocytes Absolute Auto 0.5 X10*3/uL (0.1-1.2); Monocytes Percent Auto 6.8 % (2-11); Neutrophils Absolute Auto 3.7 x10*3/uL (2.0-8.3); Neutrophils Percent Auto 51.4 % (45-73); Platelet Count 283 X10*3/uL (160-400); Red Blood Count 5.43 X10*6/uL (4.60-5.80); Red Cell Distribution Width 14.1 % (11.0-16.0); White Blood Count 7.1 X10*3/uL (4.8-10.8)
[2024-01-07 10:24] LABS: Appearance Urine Clear; Color Urine Yellow; Glucose Urine UA >=1000 mg/dL (Negative); Leukocyte Esterase Urine Negative (Negative); Nitrite Urine Negative (Negative); PH 5.5 (5.0-9.0); Specific Gravity - Urine >= 1.030 (1.005-1.025); UMIC TRIGGER UACC YES; Urine Blood Negative (Negative); Urine Ketones Negative (Negative); Urine Protein Negative (Neg-Trace)
[2024-01-07 10:30] LABS: Bacteria Urine None Seen (None Seen); Hyaline Casts Urine 0-2 /LPF (0-2); RBC Urine 0-2 /HPF (0-2); Squamous Epithelial Cell Urine 0-2 /HPF (0-2); WBC Urine 0-5 /HPF (0-5)
[2024-01-07 11:37] LABS: Creatinine Urine 73.12 mg/dL; Microalbumin Urine < 5.0 mg/L
[2024-01-07 12:59] LABS: Alanine Aminotransferase 21 U/L (0-40); Albumin Level 4.1 g/dL (3.5-5.0); Alkaline Phosphatase 78 U/L (39-117); Anion Gap 15 (12-20); Aspartate Amino Transferase 30 U/L (5-37); Bilirubin Total 0.4 mg/dL (0.0-1.0); Blood Urea Nitrogen 12 mg/dL (9-16); Carbon Dioxide 21 mmol/L (22-29); Chloride 106 mmol/L (96-108); Cholesterol 98 mg/dL (<200); Estimated Glomerular Filt Rate > 60; Glucose Fasting 129 mg/dL (60-99); HDL Cholesterol 39 mg/dL (>40); LDL Cholesterol Calculated 40 mg/dL (<100); Potassium 4.1 mmol/L (3.3-5.1); Sodium 138 mmol/L (135-145); Triglycerides 98 mg/dL (<150)
[2024-01-07 13:17] LABS: TSH reflex Free T4 2.16 uIU/mL (0.32-4.0)
== END 2024-01-07 06:05 | disposition home or self-care (01) ==
LOC: HO.HMGCLDS 06:04
PROVIDERS: PCP Nurse Practitioner Family; Visit Provider Nurse Practitioner Family
DX: E11.65 Type 2 diabetes mellitus with hyperglycemia (principal)
CPT/HCPCS: 36415; 80053; 80061; 81001; 82043; 82570; 84443; 85025

== ENCOUNTER 2024-06-28 12:59 | Outpatient (AMB) | payer MEDICARE, MEDICAID, SELFPAY ==
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
--- OUTSIDE RECORDS SUMMARY | 2024-06-28 13:02 | XMS_ITS | Clinical Summary ---
Author Organization [facility] Facility Address [address] [place] [id number] Care Team Providers Care Crosscutter Rolled Glass Name Role Phone Juan Cervantes NP Primary Care Provider [phone] Allergies No known active allergies Medications amLODIPine (NORVASC) 5 MG tablet Take 5 mg by mouth daily 0 Active Trulicity 1.5 MG/0.5ML solution pen-injector INJECT DIRECTED ONCE A WEEK 1 Active losartan (COZAAR) 25 MG tablet Take 25 mg by mouth daily 0 Active metFORMIN (GLUCOPHAGE) 1000 MG tablet Take 1,000 mg by mouth 2 (two) times a day 1 Active omega-3 (FISH OIL) 1000 MG capsule TAKE 1 CAPSULE BY MOUTH TWICE DAILY 1 Active pravastatin (PRAVACHOL) 80 MG tablet Take 80 mg by mouth 1 (one) time each day Active lisinopril (PRINIVIL,ZESTR IL) 5 MG tablet Take 5 mg by mouth 1 (one) time each day Active calcium citrate-vitamin D 250-100 MG-UNIT per tablet Take 1 tablet by mouth 2 (two) times a day Vitamin D3 2,000 units daily Active glucose blood test strip 1 each by Other route if needed Use as instructed Active insulin glargine (LANTUS) 100 UNIT/ML injection Inject under the skin every night Toujeo inject 25 units subcu qhs Active Family History Medical History Relation Comments Stroke Father Cancer Father's Sister Cancer Maternal Grandfather Cancer Maternal Grandmother Cancer Mother Cancer Mother's Brother Relation Status Comments Father Father's Sister Maternal Grandfather Maternal Grandmother Mother Mother's Brother Social History Tobacco Use Types Packs/Day Years Used Date Smoking Tobacco: Never Assessed Sex and Gender Information Value Date Recorded Sex Assigned at Not on file Legal Sex Male 4:58 PM EST Gender Identity Not on file Sexual Orientation Not on file Last Filed Vital Signs Vital Sign Reading Time Taken Comments Blood Pressure 124/72 04/26/2020 3:32 PM EST Pulse 83 04/26/2020 3:32 PM EST Temperature - - Respiratory Rate - - Oxygen Saturation 96% 04/26/2020 3:32 PM EST Inhaled Oxygen Concentration - - Weight 95.7 kg (211 lb) 04/26/2020 3:32 PM EST Height 162.6 cm (5' 4 ) 04/26/2020 3:32 PM EST Body Mass Index 36.22 04/26/2020 3:32 PM EST Plan of Treatment Health Maintenance Due Date Last Done Comments Colorectal Cancer Screening: Annual FOBT 11/22/2000 Colorectal Cancer Screening: Colonoscopy 11/22/2000 Colorectal Cancer Screening: Sigmoidoscopy 11/22/2000 Pneumococcal Vaccine: 50+ Ye ars (1 of - PCV) 11/22/2001 Influenza Vaccine (Season Ended) 2024 Hepatitis B Vaccine Aged Out No longe r eligible based on patient's age to complete this topic Insurance [facility] Care Teams Crosscutter Rolled Glass Relationship Specialty Start Date End Date Juan Cervantes NP [facility] [place] [address] PCP - General 03/20/20
[2024-06-28 13:04] VITALS: BP 110/68; PULSE 88; RESP 18; TEMP 36.4; O2SAT 97; BMI 31.9
== END 2024-06-28 13:49 | disposition home or self-care (01) ==
LOC: HO.HMCC 13:00
PROVIDERS: PCP Nurse Practitioner Family; Visit Provider Nurse Practitioner Family
DX: E11.9 Type 2 diabetes mellitus without complications (principal); Z79.4 Long term (current) use of insulin; Z13.9 Encounter for screening, unspecified

== ENCOUNTER → 2024-06-28 12:59 | Outpatient (BNVA) | payer MEDICARE, MEDICAID, SELFPAY | PROVIDERS: PCP Nurse Practitioner Family; Visit Provider Nurse Practitioner Family | DX: E11.9 Type 2 diabetes mellitus without complications (principal); Z79.4 Long term (current) use of insulin | CPT/HCPCS: 83036; 99212 ==

== ENCOUNTER 2024-07-05 08:56 | Outpatient (REF) | payer MEDICARE, MEDICAID, SELFPAY ==
--- OUTSIDE RECORDS SUMMARY | 2024-07-05 09:40 | XMS_ITS | Clinical Summary ---
Author Organization [facility] Facility Address [address] [place] [id number] Care Team Providers Care Strategic Sourcing Specialist Name Role Phone Juan Cervantes NP Primary Care Provider [phone] Allergies No known active allergies Medications amLODIPine [...] patient's age to complete this topic Insurance [facility] Care Teams Strategic Sourcing Specialist Relationship Specialty Start Date End Date Juan Cervantes [place] [place] [address] PCP - General 03/20/20
[2024-07-05 10:01] LABS: MANUAL DIFF FLAG NO
[2024-07-05 10:07] LABS: Basophils Absolute Auto 0.1 X10*3/uL (0.0-0.2); Basophils Percent Auto 0.8 % (0-2); Eosinophils Absolute Auto 0.1 X10*3/uL (0.0-0.4); Eosinophils Percent Auto 1.5 % (0-4); Hematocrit 49.9 % (42.0-52.0); Hemoglobin 17.2 g/dl (14.0-18.0); Imm Gran Abs Auto 0.05 X10*3/uL (0.00-0.03); Imm Gran Pct Auto 0.6 % (0.0-0.4); Lymphocytes Absolute Auto 2.4 X10*3/uL (1.2-4.9); Lymphocytes Percent Auto 30.9 % (20-40); Mean Corpuscular HGB Conc 34.5 g/dl (31.0-36.0); Mean Corpuscular Hemoglobin 29.7 pg (27.0-33.0); Mean Corpuscular Volume 86.2 fL (80.0-98.0); Mean Platelet Volume 9.6 fL (9.4-12.4); Monocytes Absolute Auto 0.5 X10*3/uL (0.1-1.2); Monocytes Percent Auto 6.1 % (2-11); Neutrophils Absolute Auto 4.7 x10*3/uL (2.0-8.3); Neutrophils Percent Auto 60.1 % (45-73); Platelet Count 260 X10*3/uL (160-400); Red Blood Count 5.79 X10*6/uL (4.60-5.80); White Blood Count 7.8 X10*3/uL (4.8-10.8)
[2024-07-05 10:18] LABS: Appearance Urine Clear; Color Urine Yellow; Glucose Urine UA >=1000 mg/dL (Negative); Leukocyte Esterase Urine Negative (Negative); Nitrite Urine Negative (Negative); PH 5.5 (5.0-9.0); Specific Gravity - Urine >= 1.030 (1.005-1.025); UMIC TRIGGER UACC YES; Urine Blood Negative (Negative); Urine Ketones Negative (Negative); Urine Protein Negative (Neg-Trace)
[2024-07-05 10:32] LABS: Alanine Aminotransferase 23 U/L (0-40); Albumin Level 4.2 g/dL (3.5-5.0); Alkaline Phosphatase 100 U/L (39-117); Anion Gap 10 (12-20); Aspartate Amino Transferase 28 U/L (5-37); Bilirubin Total 0.6 mg/dL (0.0-1.0); Blood Urea Nitrogen 10 mg/dL (9-16); Calcium 9.2 mg/dL (8.4-10.2); Carbon Dioxide 28 mmol/L (22-29); Chloride 106 mmol/L (96-108); Cholesterol 98 mg/dL (<200); Estimated Glomerular Filt Rate > 60; Glucose Fasting 149 mg/dL (60-99); HDL Cholesterol 37 mg/dL (>40); LDL Cholesterol Calculated 41 mg/dL (<100); Potassium 4.9 mmol/L (3.3-5.1); Sodium 139 mmol/L (135-145); Total Protein 7.2 g/dL (6.5-8.0); Triglycerides 101 mg/dL (<150)
[2024-07-05 10:39] LABS: Prostate Specific Antigen Scr 2.78 ng/mL (<0.05-4.0)
[2024-07-05 10:51] LABS: TSH reflex Free T4 1.66 uIU/mL (0.32-4.0)
[2024-07-05 11:10] LABS: Bacteria Urine None Seen (None Seen); Hyaline Casts Urine 0-2 /LPF (0-2); RBC Urine 0-2 /HPF (0-2); Squamous Epithelial Cell Urine 0-2 /HPF (0-2); WBC Urine 0-5 /HPF (0-5)
== END 2024-07-05 08:57 | disposition home or self-care (01) ==
LOC: HO.HMGCLDS 08:56
PROVIDERS: PCP Nurse Practitioner Family; Visit Provider Nurse Practitioner Family
DX: E11.9 Type 2 diabetes mellitus without complications (principal); Z79.4 Long term (current) use of insulin; Z12.5 Encounter for screening for malignant neoplasm of prostate
CPT/HCPCS: 36415; 80053; 80061; 81001; 84153; 84443; 85025

== ENCOUNTER 2024-12-27 12:22 | Outpatient (AMB) | payer MEDICARE, MEDICAID, SELFPAY ==
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
[2024-12-27 12:31] VITALS: BP 110/62; PULSE 95; RESP 16; TEMP 36.8; O2SAT 97; BMI 30.9
== END 2024-12-27 13:05 | disposition home or self-care (01) ==
PROVIDERS: PCP Nurse Practitioner Family; Visit Provider Nurse Practitioner Family
DX: Z00.00 Encounter for general adult medical examination without abnormal findings (principal); E11.9 Type 2 diabetes mellitus without complications

== ENCOUNTER → 2024-12-27 12:22 | Outpatient (BNVA) | payer MEDICARE, OTHER, SELFPAY | PROVIDERS: PCP Nurse Practitioner Family; Visit Provider Nurse Practitioner Family | DX: Z00.01 Encounter for general adult medical examination with abnormal findings (principal); E11.9 Type 2 diabetes mellitus without complications; E66.9 Obesity, unspecified; H57.02 Anisocoria; Z99.89 Dependence on other enabling machines and devices; Z79.4 Long term (current) use of insulin | CPT/HCPCS: 83036; 96127; 99397 ==